=== PATIENT | male | born 1985 | race Caucasian/White ===

== ENCOUNTER → 2022-09-23 09:41 | Outpatient (CLI) | payer OTHER, SELFPAY ==
--- NOTE | 2022-09-23 09:45 | CA_ITS ---
FINAL REPORT TECHNIQUE: Color Doppler, duplex Doppler and compression sonography of the left lower extremity deep venous systems was performed. CLINICAL HISTORY: PAIN LT CALF,NKI FINDINGS: There is no evidence of deep venous thrombosis from the level of the groin to the calf. The veins are patent and compressible. IMPRESSION: No evidence of deep venous thrombosis left lower extremity. Reviewed, Interpreted and Dictated by Fernando Abad III, MD Transcribed by Michelle Morales Authenticated and . [facility]
== END ==
PROVIDERS: PCP Nurse Practitioner Family; Visit Provider Nurse Practitioner Family
DX: M79.662 Pain in left lower leg (principal)
CPT/HCPCS: 93971

== ENCOUNTER → 2023-01-13 12:27 | Outpatient (CLI) | payer OTHER, SELFPAY ==
--- NOTE | 2023-01-13 12:28 | CA_ITS ---
APPROVED REPORT EXAM: Comprehensive 2D, Doppler, and color-flow Echocardiogram Special Education Science Teacher: Danelle Islas RDCS Ht: 5 ft 9 in Wt: 213lbs BSA: 2.12 BP: 120/84 mmHg Indications: DIZZINESS MURMUR BRADYCARDIA M-Mode Dimensions RVDd 3.12 cm (0.9-2.6) LVDd 5.99 cm (3.5-5.7) LVDs 4.13 cm (3.5-5.7) IVSd 0.75 cm (0.6-1.1) PWd 0.79 cm (0.6-1.1) EF (Teich) 57.90% FS 31.10% EDV (Teich) 179.30 mL ESV (Teich) 75.50 mL LV Diastology E Decel Time 203 (160-240 msec) E/A Ratio 1.7 Mitral Valve MV E Max Josef. 72.0 (40-130 cm/s) MV A Velocity 43.0 (40-130 cm/s) E/A Ratio 1.68 MV PHT 60.0 ms Left Ventricle The left ventricle is normal size. The left ventricular systolic function is normal. The left ventricular ejection fraction is within the normal range. There is normal left ventricular wall thickness. There is normal LV segmental wall motion. The left ventricular diastolic function is normal. LVEF is 55%. Right Ventricle The right ventricle is normal size. The right ventricular systolic function is normal. Atria The left atrium size is normal. The right atrium size is normal. There is no Doppler evidence of interatrial shunt. Aortic Valve The aortic valve opens well. There is a small fixed echodensity noted at the tips of the aortic valve. 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 There is no aortic valvular stenosis. Mild aortic regurgitation. Mitral Valve The mitral valve is normal in structure. No evidence of mitral valve stenosis. There is no mitral valve regurgitation noted. Tricuspid Valve The tricuspid valve leaflets are thin and pliable. Trace tricuspid regurgitation. There is insufficient TR jet to estimate RVSP. Pulmonic Valve The pulmonary valve is normal in structure. Trace pulmonic regurgitation. Great Vessels The aortic root is normal in size. The ascending aorta is normal in size. IVC is normal in size and collapses >50% with inspiration. Pericardium There is no pericardial effusion. Other Information Study Quality: Fair Conclusion Normal biventricular systolic function. Mild AI. Small fixed echodensity noted at the tips of the aortic valve. 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 Electronically signed by : Dana Ann MD 01/19/2023 23:14:58
[2023-01-13 13:16] LABS: Basophils % 0.6 % (0.1-2.0); Eosinophils # 0.2 K/mm3 (0.0-0.4); Eosinophils % 2.8 % (0.1-12.0); Hematocrit 39.7 % (42.0-52.0); Hemoglobin 14.6 g/dL (14.1-18.0); Lymphocytes # 2.4 K/mm3 (0.7-4.5); Lymphocytes % 44.7 % (10-50); Mean Corpuscular HGB Conc 36.9 g/dL (31.8-35.4); Mean Corpuscular Hemoglobin 33.7 pg (27.0-31.2); Mean Corpuscular Volume 91.3 fl (80-94); Monocytes # 0.4 K/mm3 (0.1-1.0); Monocytes % 6.4 % (1.7-9.3); Neutrophils # 2.5 K/mm3 (1.8-7.8); Neutrophils % 45.6 % (37.0-80.0); Platelet Count 227 K/mm3 (142-424); Red Blood Count 4.35 M/mm3 (4.60-6.20); Red Cell Distribution Width 13.5 % (11.5-17.5); White Blood Count 5.4 K/mm3 (4.8-10.8)
[2023-01-13 14:16] LABS: Chloride 103 mmol/L (98-107)
[2023-01-13 14:17] LABS: Potassium 4.1 mmoL/L (3.5-5.1); Sodium 137 mmol/L (136-145)
[2023-01-13 14:19] LABS: Alanine Aminotransferase 66 U/L (12-78); Alkaline Phosphatase 61 U/L (38-126); Anion Gap 10.1 mEq/L (5-15); Aspartate Amino Transferase 50 U/L (17-59); Bilirubin,Direct 0.1 mg/dl (0.0-0.4); Bilirubin,Indirect 0.4 mg/dL (0.0-0.9); Bilirubin,Total 0.5 mg/dl (0.2-1.3); Bilirubin,Unconjugated 0.4 mg/dL (0.0-1.1); Blood Urea Nitrogen 20 mg/dl (9-20); Calcium 9.3 mg/dl (8.4-10.2); Carbon Dioxide 28 mmol/L (22.0-30.0); Cholesterol 205 mg/dl (140-200); Estimated Glomerular Filt Rate 94 ml/min (>60); GFR (African American) 114 ML/MIN (>60); Glucose 86 mg/dl (74-100); Triglycerides 73 mg/dl (30-150); VLDL Cholesterol 15 mg/dL (0-40)
[2023-01-13 14:20] LABS: Albumin Level 4.6 g/dl (3.5-5.0); Chol/HDL Ratio 3.3 (1-3.5); HDL Cholesterol 62 mg/dl (40-60); Total Protein,Serum 7.1 g/dl (6.3-8.2)
[2023-01-13 14:31] LABS: Direct LDL Cholesterol 112.22 mg/dL (100-129)
[2023-01-13 14:34] LABS: Free T4 (Free Thyroxine) 0.86 ng/dl (0.78-2.19)
== END ==
PROVIDERS: PCP Nurse Practitioner Family; Visit Provider Nurse Practitioner Family
DX: R42 Dizziness and giddiness (principal); R00.1 Bradycardia, unspecified; E03.9 Hypothyroidism, unspecified
CPT/HCPCS: 36415; 80048; 80061; 80076; 83735; 84439; 84443; 85025; 93270; 93306

== ENCOUNTER 2024-06-18 16:35 | Emergency (ER) | payer OTHER, SELFPAY ==
[2024-06-18 16:50] VITALS: BP 125/79; PULSE 85; RESP 18; TEMP 36.5; O2SAT 96; BMI 31.7
--- NOTE | 2024-06-18 17:04 | ED_ITS ---
Discharge Plan Disposition Patient Disposition: Home, Self-Care Chief Complaint: Extremity Problem,Nontraumatic Prescriptions Prescriptions: No Action levothyroxine 175 mcg tablet See Rx Instructions .ROUTE .COMPLEX Qty: 90 3RF Dose Instruction: TAKE ONE TABLET BY MOUTH EVERY DAY Rx Instructions: TAKE ONE TABLET BY MOUTH EVERY DAY Referrals Follow up/Referrals: Tran Vila APRN [Primary Care Provider] - See instructions Deion Rondon DO [Staff Physician] - See instructions Activity Restrictions/Add. Instructions Additional Instructions/Restrictions: Follow-up with Dr. Rondon for this visit to the emergency department for further imaging and management of your left knee. Likely will need MRI. Call your family doctor to establish care for this visit to the emergency department and schedule follow-up within 48 hours to ensure improvement. If you have any worsening of your condition or any other concerning signs or symptoms, return to the emergency department or your primary care doctor for further evaluation. Clinical Impressions Clinical Impression: Effusion of left knee Stand Alone Forms Stand Alone Forms: Work/School Release Print Language Print Language: Pakistani Discharge ED Provider: Gee Cadena General Adult HPI General Chief complaint: Extremity Problem,Nontraumatic Stated complaint: Left knee pain,swollen,has knee brace on Time Seen by Provider: 06/18/24 16:39 Mode of Arrival: Ambulatory Source of Information: Patient Description of Symptoms (Recalled from ER Triage Doc. by RN): LEFT KNEE PAIN,SWELLING FOR 3 MONTHS. History of Present Illness HPI narrative: Please note that above description of symptoms, in this electronic medical record under categorization of recalled from ER triage doctor by RN are reflective of an initial nursing assessment, however, is not reflective of my full history and physical exam that was personally taken and clarified. Consequentially, this preceding description of symptoms, which may include the patient's categorized chief complaint in the EMR, do not reflect my personal clinical impression, and the ultimate description of history of present illness and patient stated complaints should be deferred to this section of the note. Unless stated otherwise or congruent with this section of the note, additional signs, symptoms, or incongruence should be interpreted as inaccurate with my clinical impression. Related Data Previous Rx's ?Medication ?Instructions ?Recorded levothyroxine 175 mcg tablet See Rx Instructions .Route 11/02/23 .COMPLEX #90 tabs Allergies Allergy/AdvReac Type Severity Reaction Status Date / Time No Known Allergies Allergy Verified 01/13/23 11:52 [facility] Disclaimer: The information contained in this section may have been updated after the patient was seen, as this information can be updated by other users. Medical History (Updated 06/18/24 @ 18:16 by Gee Cadena MD) Heart murmur Murmur Hypothyroidism Dizziness Bradycardia Irregular heart beat Social History (Updated 01/13/23 @ 11:50 by Ivania Walsh) Smoking Status: Never smoker alcohol intake: never substance use type: denies use current occupational status: employed Travel in the last 8 weeks?: Inside the [place] Have you lived/traveled outside US in past 30 days?: No Contact w/someone who lives/traveled outside US past 30 days?: No Exposure to someone with infectious disease in past 14 days?: No Do you have a fever (greater than 100.4 F or 38 C)?: No Have you tested positive for COVID-19?: No Exposed to someone with COVID-19 in past 14 days?: No Do you have a sore throat?: No Do you have a cough?: No Do you have any weakness?: No Do you have any diarrhea?: No Are you experiencing any unusual bleeding?: No Do you have any muscle aches/pain?: No Do you have any abdominal pain?: No Are you experiencing loss of taste or smell?: No ROS Obtained: Yes All systems reviewed & no additional complaints except as documented Physical Exam General General appearance: alert and in no apparent distress Head Head exam: atraumatic and normocephalic Eye Eye exam: Present normal appearance, PERRL and EOMI Neck Neck exam: Present normal inspection, full ROM and trachea midline Respiratory Respiratory exam: Absent respiratory distress, wheezes, stridor, accessory muscle use or prolonged expiratory phase Cardiovascular Cardiovascular exam: Present other (Pulses equal symmetric in upper and lower extremities) Abdominal Exam Abdominal exam: Present soft; Absent distention, tenderness or pulsatile mass Extremities Exam Extremities exam: Present joint swelling and other (Left knee effusion. Tenderness with direct application of pressure to the effusion, but no tenderness with ACL, PCL, MCL, LCL testing. Structurally intact. Maximal tenderness with meniscus testing. Range of motion full and intact with minimal pain) Neurological Exam Neurological exam: Present alert, oriented X3 and CN II-XII intact; Absent motor sensory deficit Skin Skin exam: Present warm and dry; Absent diaphoresis or erythema Medical Decision Making Medical Records Medical records reviewed: Yes I reviewed the patient's medical records. Screening: Per USPSTF and CDC recommendations, given the prevalence of disease in our region, it is our hospital?s policy to screen for HIV and viral Hepatitis for all patients aged 18 and over and those with ongoing risk factors. Elijah Inquiry Pt receiving controlled substance: No Elijah was queried for this patient: No Vital Signs: 06/18/24 16:50 06/18/24 17:26 06/18/24 17:30 Temperature 97.7 F Temperature Source Oral Pulse Rate 72 77 Pulse Rate [Right] 85 Respiratory Rate 18 Blood Pressure 126/82 122/85 Blood Pressure [Right Arm] 125/79 Blood Pressure Mean [Right Arm] 94 02 Sat by Pulse Oximetry 96 97 99 Oxygen Delivery Method Room Air Room Air Room Air Lab Data Lab Results 06/18/24 17:26: WBC 4.8, RBC 4.76, Hgb 14.3, Hct 41.9 L, MCV 88.0, MCH 30.0, MCHC 34.1, RDW 12.6, Plt Count 322, MPV 9.4, Neut % (Auto) 57.9, Lymph % (Auto) 34.0, [place] % (Auto) 6.5, Eos % (Auto) 0.6, Baso % (Auto) 0.8, Neut # (Auto) 2.8, Lymph # (Auto) 1.6, [place] # (Auto) 0.3, Eos # (Auto) 0.0, Baso # (Auto) 0.0, Sodium 140, Potassium 4.3, Chloride 108 H, Carbon Dioxide 27, Anion Gap 9.3, BUN 16, Creatinine 1.00, Estimated Creat Clear 134, Estimated GFR 82, Est GFR ( Amer) 100, Glucose 110 H, Calcium 9.2, Total Bilirubin 0.4, AST 40, ALT 43, Alkaline Phosphatase 64, C-Reactive Protein 2.6, Total Protein 7.0, Albumin 4.6, Globulin 2.4, Albumin/Globulin Ratio 1.9 H 06/18/24 17:26 06/18/24 17:26 Orders (Tests/Meds): ORDERS Category Date Time Status Knee XR left 3 views [XR knee LT 3V] Stat Exams 06/18/24 17:04 Taken POCUS Point of Care (ER Only) Stat Exams 06/18/24 17:04 Taken CBC w/Auto Diff [Complete Blood Count Auto Diff] Stat Lab 06/18/24 17:26 Results CMP [Comprehensive Metabolic Panel] Stat Lab 06/18/24 17:26 Completed CRP [C-Reactive Protein] Stat Lab 06/18/24 17:26 Completed ESR [Erythrocyte Sedimentation Rate] Stat Lab 06/18/24 17:26 Results HIV Combo Stat Lab 06/18/24 17: Received Hepatitis C Ab Qual. W/ RFX Stat Lab 06/18/24 17: Received Medical Decision Narrative: 39-year-old male presenting with left knee pain. Is been going on for a couple of months at this point. States that over the past couple weeks has been getting progressively worse, then 2 or 3 days prior to this its began swelling and becoming progressively more tender when walking on it. Able to bear weight without issue just hurts more. Moderate pain when bearing weight, but able to do so. States that he intermittently has feeling of instability in the joint. No fevers or chills, no systemic signs or symptoms. No redness, warmth, but obvious swelling. Went to family doctor. Family practitioner obtained x-rays of the knee, reportedly concerning for effusion, so stated that he needed to come to the emergency department for further evaluation to rule out septic joint. Patient otherwise has no symptoms of septic joint and has never had this knee instrumentized or injured. History was obtained via conversation with patient and PCP. On arrival, patient hemodynamically stable, alert, [oriented x4, ] appropriate, GCS 15, moving all extremities spontaneously, pupils equal and reactive to light. Full physical exam performed and significant for well- appearing male no acute distress. Range of motion is intact to the left lower extremity. Structurally intact, neurovascular intact. He does have an effusion, but no redness or warmth. Maximal tenderness with meniscus testing. Differential includes meniscus tear, osteoarthritis, tibial plateau fracture, less likely to be septic joint, Crane's cyst, ACL or PCL tear, among others. Hematologic workup was initiated as well as imaging. On independent interpretation, normal CBC, nonactionable chemistry with normal inflammatory markers. Bedside [id number] ultrasound was performed and independently interpreted. He has joint effusion, hyperemic and hypervascular structures about the knee, no evidence of other abnormality. Independent interpretation of x-rays with joint effusion, no bony abnormality. On reevaluation, patient still resting comfortably. Because he does have strenuous job, asking for light duty on the knee until following up. I feel this is appropriate. Also states that he thinks he may have injured it acutely a couple months ago while at work doing physical combat scenarios, etc. Also very likely. I feel this is incredibly unlikely to be septic arthritis given negative workup, no systemic signs or symptoms, ability to bear weight, no erythema or warmth, etc. given patient presentation, workup, history, this most likely represents soft tissue injury versus overuse injury of the knee. Because patient at baseline without signs or symptoms of clinical decompensation, deemed appropriate for discharge. Results were relayed to patient who voiced understanding and were agreeable to outpatient management and follow up. I discussed my clinical impression with patient and answered all questions. At this time, the evidence for any other entities in the differential is insufficient to warrant any further testing or ED observation. This was explained as well. Advisory was given that persistent or worsening symptoms require further evaluation. I confirmed the understanding of this discussion. Flexographic Press Operator disclaimer Much of this encounter note is an electronic director [employer] media [employer] spoken language to printed text. Electronic director [employer] of the spoken language may permit errors. Although I have reviewed the note, some errors may still exist. Procedures Limited Ultrasound Indication:: Limited soft tissue ultrasound Indication: Left knee swelling and pain Identified structures: Location: Structures about the left knee Findings: Joint effusion with hypervascular knee structures. No evidence of obvious meniscus injury, LCL or MCL injury, or patellar ligament or tendon injury. Impression: Left knee effusion with no obvious etiology Images were saved to permanent archive The study was technically adequate Soft Tissue CPT Codes: CPT Neck: 01317-45 CPT Upper extremity: 37745-62 CPT Axilla: 10710-29 CPT Chest wall: 91138-19 CPT Breast: 40438-97-DI/LT (complete), 28645-02-TC/LT (limited), CPT Upper Back: 00056-51 CPT Lower Back: 34457-23 CPT Abdominal Wall: 89141-85 CPT Pelvic Wall: 80583-39 CPT Lower Extremity: 68309-60 CPT Other Soft Tissue: 93798-52 This study was performed by me, and I personally interpreted all images/videos. Based on my clinical judgement, these images were adequate and did not necessitate further imaging. Critical Care Critical Care Time Critical Care Time: No
--- NOTE | 2024-06-18 17:04 | XR_ITS ---
PROCEDURE INFORMATION: Exam: XR Left Knee Exam date and time: 06/18/2024 5:36 PM Age: 39 years old Clinical indication: Swelling, leg or foot; Additional info: Effusion and swelling TECHNIQUE: Imaging protocol: Radiologic exam of the left knee. Views: 3 views. COMPARISON: No relevant prior studies available. FINDINGS: Bones/joints: Osseous alignment is normal. No acute fracture. No significant arthritic changes or joint fluid. Soft tissues: Normal. IMPRESSION: Negative left knee
[2024-06-18 17:26] VITALS: BP 126/82; PULSE 72; O2SAT 97
[2024-06-18 17:30] VITALS: BP 122/85; PULSE 77; O2SAT 99
[2024-06-18 17:35] LABS: Basophils % 0.8 % (0.1-2.0); Eosinophils % 0.6 % (0.1-12.0); Hematocrit 41.9 % (42.0-52.0); Hemoglobin 14.3 g/dL (14.1-18.0); Immature Granulocytes # 0.01 10^3uL; Immature Granulocytes % 0.2 %; Lymphocytes # 1.6 K/mm3 (0.7-4.5); Mean Corpuscular HGB Conc 34.1 g/dL (31.8-35.4); Mean Platelet Volume 9.4 fl (7.4-10.4); Monocytes # 0.3 K/mm3 (0.1-1.0); Monocytes % 6.5 % (1.7-9.3); Neutrophils # 2.8 K/mm3 (1.8-7.8); Neutrophils % 57.9 % (37.0-80.0); Nucleated Red Blood Cells # 0 10^3/uL; Nucleated Red Blood Cells % 0 %; Platelet Count 322 K/mm3 (142-424); Red Blood Count 4.76 M/mm3 (4.60-6.20); Red Cell Distribution Width 12.6 % (11.5-17.5); Red Cell Distribution Width-SD 40.8 fL; White Blood Count 4.8 K/mm3 (4.8-10.8)
[2024-06-18 17:42] LABS: Alanine Aminotransferase 43 U/L (12-78); Albumin Level 4.6 g/dl (3.5-5.0); Albumin/Globulin Ratio 1.9 (1.1-1.8); Alkaline Phosphatase 64 U/L (38-126); Anion Gap 9.3 mEq/L (5-15); Aspartate Amino Transferase 40 U/L (17-59); Bilirubin,Total 0.4 mg/dl (0.2-1.3); Blood Urea Nitrogen 16 mg/dl (9-20); Calcium 9.2 mg/dl (8.4-10.2); Carbon Dioxide 27 mmol/L (22.0-30.0); Chloride 108 mmol/L (98-107); Creatinine Clearance Estimated 134 mL/min (50-200); Estimated Glomerular Filt Rate 82 ml/min (>60); GFR (African American) 100 ML/MIN (>60); Globulin 2.4 g/dL (1.3-3.2); Glucose 110 mg/dl (74-100); Potassium 4.3 mmoL/L (3.5-5.1); Sodium 140 mmol/L (136-145)
[2024-06-18 17:47] LABS: C-Reactive Protein 2.6 mg/L (0-4)
[2024-06-18 18:00] VITALS: BP 110/75; PULSE 72; O2SAT 97
[2024-06-18 18:35] VITALS: BP 110/75; PULSE 72; RESP 18; TEMP 36.5; O2SAT 97
[2024-06-18 19:11] LABS: HIV Combo NEGATIVE (Negative)
[2024-06-18 19:18] LABS: Hepatitis C Ab Qual. W/ RFX NEGATIVE (Negative)
[2024-06-18 19:36] LABS: Erythrocyte Sedimentation Rate 3 mm/hr (0-15)
== END 2024-06-18 18:36 | disposition home or self-care (01) ==
PROVIDERS: Emergency Provider Emergency Medicine; PCP Nurse Practitioner Family
DX: M25.462 Effusion, left knee (principal); M25.562 Pain in left knee; Z11.59 Encounter for screening for other viral diseases; Z11.4 Encounter for screening for human immunodeficiency virus [HIV]
CPT/HCPCS: 73562; 80053; 85025; 85651; 86140; 86803; 87389; 99284

== ENCOUNTER 2024-07-02 07:09 | Outpatient (CLI) | payer OTHER, SELFPAY ==
--- NOTE | 2024-07-02 07:00 | MR_ITS ---
FINAL REPORT TECHNIQUE: Multiplanar MR without contrast CLINICAL HISTORY: knee pain and swelling. lateral sided knee pain. no injury or trauma. knee instability. FINDINGS: Articular cartilage: Diffuse thinning of the articular cartilage, most pronounced in the medial compartment. Marrow signal: Unremarkable Joint fluid: Small joint effusion with small Crane's cyst. Menisci: Oblique tear posterior horn medial meniscus seen on sagittal proton density images. The meniscus is normal. Ligaments: Collateral, cruciate and patellofemoral ligaments intact Tendons: Quadriceps and patellar tendon normal IMPRESSION: Small tear posterior horn medial meniscus. Osteoarthritic changes. Reviewed, Interpreted and Dictated by Octaviano Hewitt MD Transcribed by Sylvia Gupta Authenticated and [facility]
== END 2024-07-02 23:59 | disposition home or self-care (01) ==
LOC: RAD 07:09
PROVIDERS: PCP Nurse Practitioner Family; Visit Provider Physician Assistant
DX: S83.242A Other tear of medial meniscus, current injury, left knee, initial encounter (principal); M17.12 Unilateral primary osteoarthritis, left knee; M23.92 Unspecified internal derangement of left knee
CPT/HCPCS: 73721